=== PATIENT | male | born 1960 | race Two or more races ===

== ENCOUNTER 2018-02-19 05:58 | Inpatient (IN) | payer OTHER ==
[~2018-02-19] VITALS: Ht 167.6 cm; Wt 95.3 kg
[2018-02-19] VITALS (18 sets, daily range): BP systolic 120–172; BP diastolic 82–112
[~2018-02-19 05:58] MED LIST: NKM
[2018-02-19] MEDS ORDERED: ceFAZolin sod 2 GM in D5W 55 ML IVPB ONE (06:00)
[2018-02-19] MEDS ORDERED: TRANEXAMIC ACID IVPB ONE ×4 (07:00)
[2018-02-19] MEDS ORDERED: D5W IVPB ONE ×4 (07:00)
[2018-02-19] MEDS ORDERED: MUPIROCIN22 GM TOPIC (07:07)
[2018-02-19] MEDS ORDERED: OMEPRAZOLE20 M2 ORAL (07:07)
[2018-02-19] MEDS ORDERED: LOSARTAN-HCTZ1 EAC1 ORAL (07:07)
[2018-02-19] MEDS ORDERED: Lidocaine 1% MPF 10mg/ml 5ml ONE ×2 (07:13→10:58)
[2018-02-19] MEDS ORDERED: Ropivacaine 5mg/ml Vial 30ml INJ ONE ×3 (07:17→13:14)
--- NOTE | 2018-02-19 09:53 | Pre-Procedure Note/Attestation ---
Pre-Procedure Note/Attestation Complete Prior to Procedure Planned Procedure: right Procedure Narrative: Right knee surgical arthroscopy, chondral debridement, partial medial meniscectomy; possible unicompartmental knee replacement Indications for Procedure Pre-Operative Diagnosis: post-traumatic R knee medial meniscus tear and medial compartment osteoarthrosis Attestation I attest that I discussed the nature of the procedure; its benefits; risks and complications; and alternatives (and the risks and benefits of such alternatives ), prior to the procedure, with the patient (or the patient's legal representative government relations). I attest that, if there was a reasonable possibility of needing a blood transfusion, the patient (or the patient's legal representative government relations) was given the [place] [employer] standardized written summary, pursuant to the Kenrick Chastity Blood Safety Act ([place] Health and Safety Code # 1645, as amended). I attest that I re-evaluated the patient just prior to the surgery and that there has been no change in the patient's H&P, except as documented below: Girma Mccall MD Feb 19, 2018 09:53
[2018-02-19] MEDS ORDERED: Bupivacaine w/Epi 0.25% 30ml Vial INJ ONE (10:35)
[2018-02-19] MEDS ORDERED: fentaNYL 100 mcg/2 mL IV PRN (10:45)
[2018-02-19] MEDS ORDERED: Ketorolac 30mg Inj IV PRN ×2 (10:45)
[2018-02-19] MEDS ORDERED: Hydromorphone 0.5mg/0.5ml inj IVP PRN (10:45)
[2018-02-19] MEDS ORDERED: LORazepam Inj 2mg/ml 1ml IV PRN (10:45)
[2018-02-19] MEDS ORDERED: HYDROcodone/Acetamin 7.5/325 tab ORAL PRN (10:45)
[2018-02-19] MEDS ORDERED: DiphenhydrAMINE 50mg/ml Inj IVP PRN (10:45)
[2018-02-19] MEDS ORDERED: Atropine Sulfate 0.4mg/ml inj IVP PRN (10:45)
[2018-02-19] MEDS ORDERED: LR 1000ml 1,000 ML IVLG SCH (10:45)
[2018-02-19] MEDS ORDERED: Norco 5mg/325mg tab ORAL PRN ×2 (10:45→15:30)
[2018-02-19] MEDS ORDERED: Meperidine 50mg/ml Inj(FOR RIGORS ONLY) IVP PRN (10:45)
[2018-02-19] MEDS ORDERED: Midazolam 2mg/2ml Inj IVP PRN (10:45)
[2018-02-19] MEDS ORDERED: Acetaminophen (Non formulary) 100 ML IV ONE (10:45)
[2018-02-19] MEDS ORDERED: Metoclopramide 10mg/2ml Inj IVP PRN (10:45)
[2018-02-19] MEDS ORDERED: oxyCODONE HCL/Acetaminophen 5/325mg ORAL PRN (10:45)
[2018-02-19] MEDS ORDERED: Bacitracin 50000 Units Vial ONE ×2 (10:48→13:22)
--- NOTE | 2018-02-19 10:49 | Anethesia Preoperative Eval ---
Anesthesia Pre-op PMH/ROS General Date of Evaluation: Feb 19, 2018 Time of Evaluation: 10:54 Anesthesiologist: Ricky ASA Score: ASA 3 Mallampati Score Class I : Soft palate, uvula, fauces, pillars visible Class II: Soft palate, uvula, fauces visible Class III: Soft palate, base of uvula visible Class IV: Only hard plate visible Mallampati Classification: Class II Surgeon: Cal Diagnosis: R Knee Pain Surgical Procedure: R Knee Arthroscopy, Medial Partial Knee Replacement Family History: no anesthesia problems Allergies: Coded Allergies: No Known Allergies (Unverified , 02/19/18) Medications: see eMAR Patient NPO?: Yes NPO Date: Feb 18, 2018 NPO Time: 1999 Past Medical History Cardiovascular: Reports: HTN, other - HL Other: obesity - BMI 36 PSxH Narrative: L Knee Arthroscopy Anesthesia Pre-op Phys. Exam Physician Exam Last Vital Signs Date Time Temp Pulse Resp B/P (MAP) Pulse Ox O2 Delivery O2 Flow Rate FiO2 02/19/18 06:36 Room Air 02/19/18 06:34 97.5 60 18 150/95 (113) 99 Constitutional: NAD Neurologic: CN 2-12 intact Cardiovascular: RRR Respiratory: CTA Gastrointestinal: S/NT/ND Airway Exam Mallampati Score: Class II MO: full ROM: limited Teeth: missing, intact Anesthesia Pre-op A/P Risk Assessment & Plan Assessment: ASA 3 Plan: GA, SED, R Femoral/Adductor Block Status Change Before Surgery: No Pre-Antibiotics Dru Grams Ancef IV Given Within 1 Hr of Incision: Yes Time Given: 11:46 Silvano García MD Feb 19, 2018 10:49
[2018-02-19] MEDS ORDERED: Sodium Chloride 10ml vial INJ ONE (10:58)
[2018-02-19] MEDS ORDERED: Propofol 200mg/20ml IV ONE (10:58)
[2018-02-19] MEDS ORDERED: Dexamethasone 4mg/ml vial ONE ×2 (10:58→11:30)
[2018-02-19] MEDS ORDERED: fentaNYL 100 mcg/2 mL IV ONE ×4 (10:59→14:50)
[2018-02-19] MEDS ORDERED: EPINEPHrine 1mg/1ml Amp ONE (11:30)
--- NOTE | 2018-02-19 12:40 | Immediate Post-Op Evaluation ---
Immediate Post-Op Evalulation Immediate Post-Op Evalulation Procedure: R Knee Arthroscopy, Medial Partial Knee Replacement Date of Evaluation: Feb 19, 2018 Time of Evaluation: 15:27 IV Fluids: 1200 LR Blood Products: 0 Estimated Blood Loss: 25 Urinary Output: 100 Blood Pressure Systolic: 172 Blood Pressure Diastolic: 112 Pulse Rate: 93 Respiratory Rate: 16 O2 Sat by Pulse Oximetry: 99 Temperature (Fahrenheit): 99.5 Pain Score (1-10): 2 Nausea: No Vomiting: No Complications 0 Patient Status: awake, reacts, patent, extubated, none Hydration Status: adequate Dru Grams Ancef IV Given Within 1 Hr of Incision: Yes Time Given: 11:46 Silvano García MD Feb 19, 2018 12:40
[2018-02-19] MEDS ORDERED: Ketorolac 30mg Inj ONE ×2 (13:14→14:03)
[2018-02-19] MEDS ORDERED: NeoSporin Gu Irrig 1ml Amp IRRIG ONE (13:22)
[2018-02-19] MEDS ORDERED: Metoprolol 5mg/5ml Inj ONE (14:57)
--- NOTE | 2018-02-19 15:30 | Brief Operative Note ---
Immediate Post Operative Note Operative Note Pre-op Diagnosis: post-traumatic R knee medial meniscus tear and medial compartment osteoarthrosis Procedure: R knee surgical arthroscopy excision of semilunar cartilage medial compartment arthroplasty use of cement Post-op Diagnosis: same as pre-op Findings: consistent w/pre-op dx studies Surgeon: MELANI MCCALL Anesthesiologist: SHANTI AMAYA Anesthesia: general, regional Specimen: yes Complications: none Condition: stable Fluids: CRYSTALLOID Estimated Blood Loss: volume Drains: none Tourniquet time: 106 Implant(s) used?: Yes Girma Mccall MD Feb 19, 2018 15:30
--- NOTE | 2018-02-19 16:10 | Diagnostic Imaging Report ---
Indication: Postop knee replacement 2 views of the right knee were obtained. Findings: Unicompartmental replacement of the the medial compartment of the right knee demonstrated with the prosthesis. Alignment and position of the prosthesis is unremarkable. Soft tissue air and swelling noted as well as anterior skin taylor. IMPRESSION: Status post the unicompartmental joint replacement
[2018-02-19] MEDS ORDERED: oxyCODONE 5mg IR tab ORAL PRN (18:00)
--- NOTE | 2018-02-19 18:09 | 48 Hour Post Anesthesia Eval ---
Post Anesthesia Evaluation Procedure: R Knee Arthroscopy, Medial Partial Knee Replacement Date of Evaluation: Feb 19, 2018 Time of Evaluation: 18:09 Blood Pressure Systolic: 142 0: 82 Pulse Rate: 70 Respiratory Rate: 14 O2 Sat by Pulse Oximetry: 99 Airway: patent Nausea: No Vomiting: No Pain Intensity: 0 Hydration Status: adequate Cardiopulmonary Status: stable Mental Status/LOC: patient returned to baseline Follow-up Care/Observations: na Post-Anesthesia Complications: none Follow-up care needed: N/A Camille Parr CRNA Feb 19, 2018 18:09
[2018-02-19] MEDS: Docusate Sod/Senna tab ORAL SCH (18:29)
[2018-02-19] MEDS: celeBREX 200mg Cap **SURGERY PATIENTS ONLY ORAL SCH (18:29)
[2018-02-19] MEDS: D5 1/2NS w/KCl 20mEq 1,000 ML IV SCH (18:29)
[2018-02-19] MEDS: Ketorolac 30mg Inj IV SCH (18:32)
[2018-02-19] MEDS: ceFAZolin 2gm/50ml Premix 50 ML IV SCH (20:32)
[2018-02-20] VITALS (7 sets, daily range): BP systolic 136–150; BP diastolic 68–79
[2018-02-20] MEDS: Ketorolac 30mg Inj IV SCH ×4 (00:38→19:19)
[2018-02-20] MEDS: ceFAZolin 2gm/50ml Premix 50 ML IV SCH (04:07)
[2018-02-20 06:51] LABS: ANION GAP 10 mmol/L (5-15); BLOOD UREA NITROGEN 14 mg/dL (7-18); CALCIUM 8.7 MG/DL (8.5-10.1); CARBON DIOXIDE 22 MMOL/L (21-32); CHLORIDE 104 MMOL/L (98-107); CREATININE 1.2 MG/DL (0.55-1.30); SODIUM 136 MMOL/L (136-145)
[2018-02-20] MEDS: D5 1/2NS w/KCl 20mEq 1,000 ML IV SCH (08:32)
[2018-02-20] MEDS: Docusate Sod/Senna tab ORAL SCH ×2 (08:34→17:27)
[2018-02-20] MEDS: celeBREX 200mg Cap **SURGERY PATIENTS ONLY ORAL SCH (08:34)
[2018-02-20] MEDS: Enoxaparin 40mg Inj SUBQ SCH (08:37)
[2018-02-20] MEDS: Hyzaar 12.5mg/50mg tab ORAL SCH (08:44)
[2018-02-20] MEDS: HYDROcodone/Acetamin 7.5/325 tab ORAL PRN ×2 (10:08→17:27)
[2018-02-20] MEDS ORDERED: Tubing IV Secondary IV ONE (13:14)
--- NOTE | 2018-02-20 13:38 | Orthopedic Progress Note ---
Orthopedic - Progress Note Subjective Symptoms: c/o post-op knee pain Objective Last 24 Hour Vital Signs Date Time Temp Pulse Resp B/P (MAP) Pulse Ox O2 Delivery O2 Flow Rate FiO2 02/20/18 12:32 98.0 02/20/18 10:38 98.0 02/20/18 09:45 98.0 70 18 145/68 (93) 96 02/20/18 09:36 Room Air 02/20/18 08:44 133/79 02/20/18 08:20 Room Air 02/20/18 08:00 98.0 70 18 145/68 (93) 02/20/18 04:00 97.8 89 17 138/78 (98) 97 02/20/18 00:00 97.9 83 17 137/78 (97) 96 02/19/18 21:00 Room Air 02/19/18 20:00 98.6 101 19 140/96 (111) 95 02/19/18 18:45 98.2 84 20 154/98 (116) 97 02/19/18 18:10 70 14 99 02/19/18 17:45 97.9 83 20 152/98 (116) 97 02/19/18 17:15 97.4 20 148/98 (115) 97 02/19/18 16:45 97.5 89 20 148/99 (115) 98 02/19/18 16:45 Nasal Cannula 3.0 02/19/18 16:30 98.4 80 19 142/82 97 Nasal Cannula 3.0 02/19/18 16:15 95 18 138/83 98 Nasal Cannula 3.0 02/19/18 16:10 99.5 02/19/18 16:00 85 19 145/88 96 Nasal Cannula 3.0 02/19/18 15:45 84 18 159/95 97 Nasal Cannula 2.0 02/19/18 15:35 92 19 154/89 98 Nasal Cannula 2.0 02/19/18 15:25 97 18 168/99 100 Simple Mask 6.0 02/19/18 15:20 86 17 172/106 99 Simple Mask 6.0 02/19/18 15:16 99.5 93 16 172/112 99 Simple Mask 6.0 02/19/18 15:16 93 16 99 Intake and Output 02/19/18 02/20/18 19:00 07:00 Intake Total 1487.5 ml 75 ml Output Total 1300 ml Balance 187.5 ml 75 ml Intake Oral 250 ml IV Total 1237.5 ml 75 ml Output Urine Total 1275 ml Estimated Blood Loss 25 ml Laboratory Tests Test 02/20/18 05:45 Sodium Level 136 MMOL/L (136-145) Potassium Level 4.0 MMOL/L (3.5-5.1) Chloride Level 104 MMOL/L (98-107) Carbon Dioxide Level 22 MMOL/L (21-32) Anion Gap 10 mmol/L (5-15) Blood Urea Nitrogen 14 mg/dL (7-18) Creatinine 1.2 MG/DL (0.55-1.30) Estimat Glomerular Filtration Rate > 60 mL/min (>60) Glucose Level 200 MG/DL (74-106) H Calcium Level 8.7 MG/DL (8.5-10.1) Wound: intact Drains: none Neuro Status: normal Vascular Status: normal Additional Comments CPM : 0-100 Assessment Procedure Performed R knee surgical arthroscopy excision of semilunar cartilage medial compartment arthroplasty use of cement Plan Plan: PT, continue antibiotics, discharge plan Additional Comments plan dc 11-04 am to home Girma Mccall MD Feb 20, 2018 13:38
--- NOTE | 2018-02-20 13:45 | Discharge Instructions ---
Discharge Instructions Discharge Instructions Follow up with: dr. Mccall 02-28-2018 Services at Discharge: physical therapy - outpatient Diet: 2 GM sodium (low sodium) Activity: ambulate w/ assist only For Surgical Patients Dressing Care: keep dry and clean May shower: No Contact your physician for: bleeding, redness, swelling, yellowish discharge in the op. site - patient to isolate R knee with a water proof dressing before showering For Congestive Heart Failure Reminder Report to your physician any weight gain of 5 pounds or more in one week. Girma Mccall MD Feb 20, 2018 13:45
--- NOTE | 2018-02-20 20:00 | Operative Note - Dictated ---
DATE OF OPERATION: 02/19/2018 SURGEON: Girma Mccall M.D. FINANCE SPECIALIST: None. ANESTHESIOLOGIST: Silvano García M.D. ANESTHESIA TYPE: General plus regional right femoral nerve/adductor canal block. PREOPERATIVE DIAGNOSES: 1. Posttraumatic right knee medial meniscus tear and medial compartment osteoarthrosis. 2. Posttraumatic right knee pain. 3. Remote history of surgical arthroscopy of the knee. POSTOPERATIVE DIAGNOSES: 1. Posttraumatic right knee medial meniscus tear and medial compartment osteoarthrosis. 2. Posttraumatic right knee pain. 3. Remote history of surgical arthroscopy of the knee. PROCEDURES: 1. Right knee surgical arthroscopy and debridement. 2. Right knee medial compartment arthroplasty with excision of semilunar cartilage and use of cement. 3. Multilayered complex wound closure. IMPLANTS USED: 1. Simplex P bone cement. 2. ConforMIS iUni G2 tibial tray. 3. ConforMIS iUni G2 femoral implant. 4. ConforMIS 6 mm contoured tibial polyethylene insert. COMPLICATIONS: There were no complications. TOURNIQUET TIME: 160 minutes. FLUIDS: 1200 mL of crystalloid. BLOOD LOSS: 25 mL. COUNTS: Correct at the conclusion of the procedure. SURGICAL INDICATION: The patient is a 57-year-old male, who sustained injuries to his right knee. The patient was treated initially nonoperatively, but this did not alleviate the patient's symptoms. He underwent appropriate preop diagnostic staging studies, which revealed a complex tear of the medial meniscus right knee in addition to medial compartment osteoarthritis. Therefore, after discussing all nonsurgical and surgical options, discussing all foreseeable risks, benefits, and potential complications of the proposed procedure, the patient has opted for surgical treatment as described above. On the day of the procedure. The patient was reassessed in the preop holding area and it was ascertained that his physical exam remained unchanged. The surgical plan was revaluated. Written informed consent was obtained. The appropriate right lower extremity was then designated by the attending surgeon using an indelible marker. No warranties or guarantees as to outcome were implied, expressed, or intended. DESCRIPTION OF PROCEDURE: The patient was then transported to the operating room and placed supine on the OR table. A regional femoral nerve/adductor canal block and general anesthesia were induced by Dr. Silvano García and his anesthesiology staff. A surgical time out was conducted according to universal protocol. 2 g of IV Ancef and 80 mg of gentamicin were administered in addition to 1 g of tranexamic acid. The extremity was then prepped, draped, and isolated in the usual standard sterile fashion. The right knee and right lower extremity were then tested under anesthesia. It was ascertained that there was no evidence of overt anterior, posterior, medial, or lateral instability. All pressure points were padded as well. The lateral thigh and knee post was then placed in position to allow for opening of the medial compartment of the knee without placing undue pressure of the fibular head of the common peroneal nerve. A nonsterile tourniquet had been applied high to the right thigh over ample Webril padding. PORTAL PLACEMENT: The inferolateral portal was placed with the knee flexed to 90 degrees at the level of the inferior border of the patella inline with the lateral border of the patellar tendon. A 0.5 cm skin incision was then made with a number #11 blade and using a blunt obturator, the capsule was gently penetrated. Sterile saline solution was then infused with the aid of an arthroscopic pump, which was set at 35 mmHg pressure. Under direct visualization, placement of the medial port was preliminarily judged by using a spinal needle and it was subsequently established using the same technique as the lateral portal. Care was taken not to injure the cutaneous branches of the medial saphenous nerve or the subcutaneous veins. DIAGNOSTIC ARTHROSCOPY: The suprapatellar pouch was visualized. There was no evidence of any scar tissue. There was some mild chondral debris noted floating freely in the pouch fluid. The medial and lateral patellar facets and trochlear groove articular cartilage were visualized. These structures revealed grade 1 to 2 changes of the trochlea. There was corresponding grade 1 chondromalacia of the medial and lateral patellar facets. The medial plica shelf and the corresponding medial femoral condyle articular cartilage were visualized. There was noted to be a large grade 3 to 4 lesion of the near weightbearing portion of the medial femoral condyle with near full-thickness cartilage loss. This measures approximately 25 mm. There was a corresponding lesion of the medial tibial plateau graded as being grade 2. There was noted to be a complex tear of the posterior horn and body of the medial meniscus as well. At this point, the knee was placed in a figure 4 position. The lateral compartment was entered. The lateral femoral condyle, lateral tibial plateau, and the anterior, body and posterior horn of the lateral meniscus were visualized and probed. The articular surfaces were intact for the most part and devoid of any articular cartilage damage. The lateral meniscus was completely intact both on its under service and on the top surface. The knee was then placed at 90 degrees and the contents of the intercondylar notch including ACL and PCL were visualized and probed. The ACL was completely intact on visualization and probing and was noted to have excellent tension. The PCL was also equally intact on visualization and probing with excellent tension. At this point in time, the loose debris from the suprapatellar pouch was removed with the use of a suction motorized shaver and specific attention was given to assure all visible loose fragments were irrigated out the knee joint with a pump-inflow and cannula outflow system. Then, the procedure was converted to a mini open arthrotomy on the medial side in preparation for the medial compartment arthroplasty. A midline perapatellar skin incision was centered over the patella measuring 10 cm. The extremity was exsanguinated using an Esmarch bandage and tourniquet was inflated to 275 mmHg pressure. The previous incision was then deepened. Medial peripatellar arthrotomy was then performed. Significant fissuring and cartilage damage along the medial compartment was noted. Appropriate femoral osteophytes were then resected using an osteotome and variable angled rongeurs. This was performed to facilitate accurate alignment, orientation, and attachment of the various cutting jigs. FEMORAL PREPARATION: The appropriate femoral iJig from the ConforMIS set was placed and fitted on the condyle and the stylus was attached. The transition margins and boundaries of the iJig were delineated with a surgical marker. Minimal residual cartilage was removed using a ring curette beginning from a point just superior to the linea terminalis. First attention was given to transition zones at the cartilage implant interface. Extreme care was taken to ascertain that the iJig was secured in both the AP and ML positions. The femoral iJig was then secured and stabilized using a pair of 3 mm drill bit. The peg sockets were then prepared next. The posterior cut was then made. LIGAMENT BALANCING: The residual meniscus and cartilage was then resected including semilunar cartilage from the medial tibial plateau and compartment. Appropriate sized used building materials yard worker chip was selected and inserted and provided optimal tension of the ligaments. A varus valgus force was exerted in extension and resulted in physiological joint laxity of 1 to 2 mm of the medial compartment. Care was taken not to overcorrect the deformity and not to overstuff the contralateral compartment. TIBIAL PREPARATION: The appropriate tibial iJig was assembled with its alignment guide and mounted over the post of the used building materials yard worker chip. After confirmation of appropriate alignment of the guide with the tibial crest, it was secured using two 3 mm drill bits. The sagittal tibial cut was made taking care to avoid fibers of the ACL or compromise of the tibial eminence. The reciprocating saw blade was left in place. A horizontal cut was made with the oscillating blade. FINAL PREPARATION: Osteotomy cuts were then refined and further contouring of the transition zones was achieved with a 5 mm bur. Flexion-extension gaps were equalized using spacer blocks. The tibial peg and keel guide was then inserted and the anterior and inferior peg channels were drilled followed by the keel punch. Approximately 15 to 20 shallow channels were prepared using a 3 mm step drill in order to maximize enhance cement interdigitations and integration on the femoral surface. Final trial components were assembled followed by insertion of the appropriate spacer and the knee was then cycled through a range of motion with excellent alignment and physiological ligament and soft tissue tension. Trial components were explanted and the poly spacer was disengaged. Copious irrigation of all joint surfaces were then performed with 2 L of dual antibiotic solution. Surfaces were then meticulously desiccated. Final components were then anatomically imbedded in place using antibiotic impregnated cement. Care was taken to remove all extruded cement. Final poly spacer was then impacted in place and patellar tracking and range of motion were then judged and found to be normal. Hemostasis was achieved using the bipolar electrocautery and hemostatic matrix. The capsule and soft tissues were infiltrated with the use of admixture of ropivacaine. Watertight 4-layered closure with #1 Vicryl, 0 Vicryl, 2-0 Vicryl in interrupted fashion and taylor for the skin was then performed and accomplished. Final sponge and needle counts were correct. The patient extubated in the operating room and transferred to recovery in stable condition. DISPOSITION: To med/surg floor where he will be started on a CPM protocol. Girma Mccall M.D. DR: ANNMARIE JOB#: [id number] CC: email: [email or web address]
[2018-02-21] VITALS: BP 145/80
[2018-02-21] MEDS: Ketorolac 30mg Inj IV SCH ×3 (00:38→12:07)
[2018-02-21 04:00] VITALS: BP 136/80
[2018-02-21 08:00] VITALS: BP 151/82
[2018-02-21] MEDS: Enoxaparin 40mg Inj SUBQ SCH (09:00)
[2018-02-21] MEDS: Hyzaar 12.5mg/50mg tab ORAL SCH (09:16)
[2018-02-21] MEDS: Docusate Sod/Senna tab ORAL SCH (09:16)
[2018-02-21] MEDS: celeBREX 200mg Cap **SURGERY PATIENTS ONLY ORAL SCH (09:16)
[2018-02-21] MEDS ORDERED: Neosporin Oint Ud Pkt TOPIC SCH (10:15)
[2018-02-21 12:00] VITALS: BP 147/91
--- NOTE | 2018-02-23 08:05 | Discharge Summary ---
Discharge Summary Hospital Course Date of Admission Feb 19, 2018 at 05:58 Date of Discharge Feb 21, 2018 at 14:00 Admitting Diagnosis post-traumatic R knee medial meniscus tear and medial compartment osteoarthrosis Reason for Hospitalization: elective surgery ARI Joy is a 57 year old male who was admitted on Feb 19, 2018 at 05:58 for post-traumatic Right knee medial meniscus tear and medial compartment osteoarthrosis Patient was admitted for elective surgery. Procedures s/p 02/19/[address] Mccall 1. Right knee surgical arthroscopy and debridement. 2. Right knee medial compartment arthroplasty with excision of semilunar cartilage and use of cement. 3. Multilayered complex wound closure. Hospital Course Status post surgery Course of recovery uneventful Initially IV fluids Perioperative antibiotic Pain management addressed Neurovascular status intact First postop dressing changed by surgeon Patient was working with physical therapist, ambulated with assistive device, weightbearing as tolerated, right knee brace CPM 0-100 DVT prophylaxis with Lovenox provided GI prophylaxis provided Patient was able to tolerate diet Voided freely Bowel regimen instituted Patient was stable for discharge:pain controlled, neurovascular status intact, dressing clean, dry, and intact ; ambulated with assistive device, tolerated diet, voided freely Discharge instruction provided Crutches provided upon discharge Outpatient follow-up with surgeon 02/28 FINAL DIAGNOSES 1. Posttraumatic right knee medial meniscus tear and medial compartment osteoarthrosis. 2. Posttraumatic right knee pain. 3. Remote history of surgical arthroscopy of the knee 4. s/p R knee surgical arthroscopy, excision of semilunar cartilage, medial compartment arthroplasty, use of cement Discharge Medications Continued Medications: Losartan/Hydrochlorothiazide (Losartan-Hctz 100-25 Mg Tab) 1 Each Tablet 1 TAB ORAL DAILY, TAB (This prescription has been renewed) Mupirocin* (Mupirocin*) 22 Gm Oint...g. 1 APPLIC TOPIC BID, GM (This prescription has been renewed) Omeprazole (Omeprazole) 20 Mg Capsule. 20 MG ORAL NEEDED, CAP (This prescription has been renewed) Discharge Condition Upon Discharge: stable Discharge Disposition Patient was discharged to Home () Discharge Instructions Discharge Instructions Follow up with: dr. Mccall 02-28-2018 Services Upon Discharge: physical therapy - outpatient Activity: ambulate w/ assist only Special Instructions I have been assigned to complete a D/C Summary on this account. I was not involved in the patient management For Surgical Patients Dressing Care: keep dry and clean May shower: No Contact your physician for: bleeding, redness, swelling, yellowish discharge in the op. site - patient to isolate R knee with a water proof dressing before showering Lena Killian NP Feb 23, 2018 08:05
== END 2018-02-21 14:00 | disposition home or self-care (01) | DRG 470 ==
LOC: SDSOVERFLO 05:58 → 3E 17:00 → UNDODISIN 02-21 14:00
PROC: 0SRC0L9 Replacement of Right Knee Joint with Medial Unicondylar Synthetic Substitute, Cemented, Open Approach (ICD-10-PCS; principal; 2018-02-19 07:30)
PROC: 0SBC4ZZ Excision of Right Knee Joint, Percutaneous Endoscopic Approach (ICD-10-PCS; principal; 2018-02-19 07:30)
DX: S83.231A Complex tear of medial meniscus, current injury, right knee, initial encounter (principal); W19.XXXA Unspecified fall, initial encounter; M17.31 Unilateral post-traumatic osteoarthritis, right knee; M94.261 Chondromalacia, right knee; I10 Essential (primary) hypertension
CPT/HCPCS: 36415; 80048; 86850; 86900; 86901; 87081; C9399; J1580; J2250; J2405